=== PATIENT | male | born 1965 | race Caucasian/White ===

== ENCOUNTER 2018-05-08 07:52 | Day surgery (SDC) | payer BC, OTHER ==
[2018-05-08 08:37] LABS: HEMATOCRIT 43.7 % (37.9-51.0); HEMOGLOBIN 15.3 g/dL (13.5-17.0); MEAN CORPUSCULAR HEMOGLOBIN 32.4 pg (27.0-33.4); MEAN CORPUSCULAR VOLUME 93 fl (80-97); PLATELET COUNT 264 10^3/uL (150-450); RED BLOOD COUNT 4.72 10^6/uL (4.35-5.55); RED CELL DISTRIBUTION WIDTH 14.1 % (11.5-14.0); WHITE BLOOD COUNT 5.8 10^3/uL (4.0-10.5)
[2018-05-08 08:40] LABS: BLOOD UREA NITROGEN 12 mg/dL (7-20)
[2018-05-08 08:46] LABS: INTERNATIONAL RATION (INR) 0.91; PROTHROMBIN TIME 12.7 SEC (11.4-15.4)
[2018-05-08 08:47] LABS: PARTIAL THROMBOPLASTIN TIME 31.9 SEC (23.5-35.8)
[2018-05-08] MEDS ORDERED: LIDOCAINE 1% INJ-PF (10 MG/ML) 30 ML SDV ONE (09:47)
[2018-05-08 14:13] VITALS: BP 134/86
--- NOTE | 2018-05-08 14:37 | RADIOLOGY REPORT (SQ) ---
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 Postmyelogram thoracic spine CT was performed immediately and with 2 hour delay imaging. Images revi ewed in lung bone and soft tissue windows with sagittal and coronal reconstructions TECHNIQUE: Fluoroscopic guided thoracic myelogram. LIMITATIONS: None. PROCEDURE: After written consent and assessment were obtained, the patient was brought into the fluo roscopy room and placed prone on the table. The patient's lower back was prepped in a sterile fashio n and an entry site was selected under live fluoroscopic guidance. The entry site was anesthetized wi th 4 mL of 1% lidocaine. The spinal needle was advanced through the skin and into the thecal sac at t he left paracentral L3-4 level. 10 mL of Isovue 300 M Contrast was injected into the thecal sac. Fo llowing the procedure the needle was removed and a sterile bandage was placed of the site. CONTRAST: 10 mL Isovue-300 M. IMAGES ACQUIRED: Prone supine and oblique fluoroscopic images, postmyelogram CT with sagittal and cor onal reconstructions TECHNIQUE: After performing lumbar myelogram, fluoroscopic images were obtained with the patient in the procedure suite followed by axial CT images were acquired through the lumbar spine without intrav enous contrast. Images reviewed with lung, soft tissue and bone windows. Reconstructed coronal and sagittal MPR images reviewed. All images stored on PACS. All CT scanners at this facility use dose modulation, iterative reconstruction, and/or weight based d osing when appropriate to reduce radiation dose to as low as reasonably achievable (ALARA). [facility]: Dose Right [facility]: CareDose [facility]: Dose Right [facility]: Teradose 4D [facility]: [employer] FINDINGS: SEGMENTATION: 5 lumbar and 12 thoracic vertebral bodies are present. Bones are osteopenic with multilevel endplate irregularities, no thoracic spine osteoporotic compression fracture ALIGNMENT: Normal. VERTEBRAL BODIES: No fractures. No dislocation. No acute findings. HARDWARE: None in the spine. DISCS: T1-2 through T3-4 are unremarkable. At T4-5, asymmetric rightward facet hypertrophy and ligamentum flavum ossification causes moderate to high-grade right foraminal narrowing, best shown on axial series 4, image 34 and sagittal reconstruc tion series 302 image 17. No central canal narrowing or left foraminal stenosis At T5-6, moderate right-sided foraminal stenosis results from asymmetric right-sided facet and ligame nt hypertrophy. This is best shown on axial series 4, image 43, and sagittal series 302, image 17. No left foraminal narrowing or central stenosis. At T6-7, moderate bilateral foraminal narrowing results from bilateral facet hypertrophy and ligament um flavum calcification. No central stenosis. At T7-8, high-grade left foraminal narrowing results from asymmetric facet hypertrophy and ligamentum flavum ossification. No central stenosis or significant right foraminal narrowing. At T8-9, the spinal cord itself is flattening the AP diameter, best shown on axial series 4, images 7 4-81. The dorsal aspect of the cord appears to be flattened by prominent CSF space which measures ab out 2.5 cm in greatest craniocaudad dimension. This CSF space fills with contrast on the immediate a nd [address] images and could represent a small arachnoid cyst. Minimal posterior disc bulge a nd bony spurring is present without significant mass effect on the spinal cord. There is mild right and moderate left foraminal narrowing from facet and ligament hypertrophy. No significant central st enosis. At T9-10, an old right paracentral and proximal foraminal disc bulge and bony spurring is present on axial series 4, image 87. No cord flattening. Moderate right foraminal narrowing. No significant c entral canal stenosis or left foraminal narrowing. T10-11 and T11-12 are unremarkable. T12-L1 is unremarkable. PEDICLES, TRANSVERSE PROCESSES: No fractures. No dislocation. No acute findings. FACETS, POSTERIOR ELEMENTS: No fractures. No dislocation. VISUALIZED RIBS: No fractures. SOFT TISSUES: No significant or acute finding in adjacent soft tissues. OTHER: No other significant finding. IMPRESSION: No high-grade central canal narrowing Mild narrowing of the AP diameter the cord at the T8-9 disc level due to flattening of the dorsal cor d by a small arachnoid cyst which accumulates intrathecal contrast Multilevel foraminal narrowing from facet hypertrophy and ligamentum flavum thickening. COMMENT: Patient medication list reviewed: Yes- Quality ID# [id number]:Eligible professional attests to doc umenting in the medical record they obtained, updated, or reviewed the patient's current medications. TECHNICAL DOCUMENTATION: JOB ID: [id number] Quality ID # [id number]: Final reports with documentation of one or more dose reduction techniques (e.g., Au tomated exposure control, adjustment of the mA and/or kV according to patient size, use of iterative reconstruction technique) 2010 [employer]- All Rights Reserved Reading location - IP/workstation name: [email or web address]
== END 2018-05-08 14:15 | disposition home or self-care (01) ==
LOC: RAD 07:52
PROVIDERS: ATTEND Specialist
DX: M51.24 Other intervertebral disc displacement, thoracic region (principal)
CPT/HCPCS: 36415; 84520; 82565; 85027; 85610; 85730; 72255; 72129; J3490